=== PATIENT | male | born 1945 | race African-American/Black ===

== ENCOUNTER 2016-06-06 08:03 | Day surgery (SDC) | payer MEDICARE, BC ==
--- NOTE | ~2016-06-06 | EGD ---
EGD REPORT [facility] [address] [place]. [id number] NAME: TYRONE JANSEN : [birth year] STATUS : REG [facility]#: [id number] AGE: 70 ADM/REG DATE : 06/06/16 MR#: [id number] REPORT SERV DATE: 06/06/16 DICTATED BY: GINGER NOWAK DATE: 06/06/16 REPORT STATUS : Draft TRANSCRIBED BY: [employer] DATE: 06/06/16 [facility] Patient Name: Tyrone Jansen Date of : 1945 Attending MD: JAMAR NOWAK MD Procedure Date No Time: 06/06/2016 Procedure: Colonoscopy Indications: High risk colon cancer surveillance: Personal history of colonic polyps, Last colonoscopy: January 2011 Referring MD: AMANDA MURRAY Medicines: See the Anesthesia note for documentation of the administered medications Complications: No immediate complications. Estimated blood loss: None. Procedure: Pre-Anesthesia Assessment: - ASA Grade Assessment: III - A patient with severe systemic disease. - Prior to the procedure, a History and Physical was performed, and patient medications and allergies were reviewed. The patient's tolerance of previous anesthesia was also reviewed. The risks and benefits of the procedure and the sedation options and risks were discussed with the patient. All questions were answered, and informed consent was obtained. Prior Anticoagulants: The patient has taken Coumadin (warfarin), last dose was 5 days prior to procedure. After reviewing the risks and benefits, the patient was deemed in satisfactory condition to undergo the procedure. After I obtained informed consent, the scope was passed under direct vision. Throughout the procedure, the patient's blood pressure, pulse, and oxygen saturations were monitored continuously. The PCF [id number] was introduced through the anus and advanced to the terminal ileum. The ileocecal valve, appendiceal orifice, terminal ileum and rectum were photographed. The entire colon was examined. The colonoscopy was performed without difficulty. The patient tolerated the procedure well. The quality of the bowel preparation was adequate. Findings: The perianal and digital rectal examinations were normal. The terminal ileum appeared normal. A sessile polyp was found in the mid ascending colon. The polyp was small in size. The polyp was removed with a cold snare. Resection and retrieval were complete. A sessile polyp was found in the proximal descending colon. The polyp EGD REPORT [address] [address] NAME: TYRONE JANSEN : [birth year] STATUS : REG [facility]#: [id number] AGE: 70 ADM/REG DATE : 06/06/16 MR#: [id number] REPORT SERV DATE: 06/06/16 DICTATED BY: GINGER NOWAK DATE: 06/06/16 REPORT STATUS : Draft TRANSCRIBED BY: [employer] DATE: 06/06/16 was small in size. The polyp was removed with a cold snare. Resection and retrieval were complete. Multiple small and large-mouthed diverticula were found in the entire colon. Non-bleeding internal hemorrhoids were found during retroflexion and were Grade I (internal hemorrhoids that do not prolapse). No other significant abnormalities were identified in a careful examination of the remainder of the colon. Impression: - The examined portion of the ileum was normal. - One small polyp in the mid ascending colon. Resected and retrieved. - One small polyp in the proximal descending colon. Resected and retrieved. - Diverticulosis in the entire examined colon. - Non-bleeding internal hemorrhoids. Recommendation: - Patient has a contact number available for emergencies. The signs and symptoms of potential delayed complications were discussed with the patient. Return to normal activities tomorrow. Written discharge instructions were provided to the patient. - High fiber diet indefinitely. - Discharge patient to home. - Continue present medications. - Await pathology results. - Repeat colonoscopy in 5-10 years for surveillance based on pathology results. - Restart your coumadin at your regular dose today. Procedure Code(s): --- Professional --- 96725, Colonoscopy, flexible, proximal to splenic flexure; with removal of tumor(s), polyp(s), or other lesion(s) by snare technique Diagnosis Code(s): --- Professional --- K64.0, First degree hemorrhoids K57.30, Diverticulosis of large intestine without perforation or abscess without bleeding D12.4, Benign neoplasm of descending colon D12.2, Benign neoplasm of ascending colon Z86.010, Personal history of colonic polyps CPT copyright 2013 [employer]. All rights reserved. The codes documented in this report are preliminary and upon medical records coder review may EGD REPORT [facility] [address] [address] [address] NAME: TYRONE JANSEN : [birth year] STATUS : REG [facility] PAT#: [id number] AGE: 70 ADM/REG DATE : 06/06/16 MR#: [id number] REPORT SERV DATE: 06/06/16 DICTATED BY: GINGER NOWAK DATE: 06/06/16 REPORT STATUS : Draft TRANSCRIBED BY: [employer] DATE: 06/06/16 be revised to meet current compliance requirements. JAMAR NOWAK MD 06/06/2016 10:28 AM This report has been signed electronically. Number of Addenda: 0 Note Initiated On: 06/06/2016 10:04 AM Scope Withdrawal Time 0 hours 8 minutes 29 seconds [address] [id number]
[~2016-06-06 08:03] MED LIST: C1 PO; FISH-EPA1000 MG PO; HYDROCHLOROT12.5 MG PO; LOP100 PO; LOTE40 PO; MOBIC7.5 PO; MULTIPLE VIT PO; NIASPAN500 PO; POT GLUCONAT550 M1 PO; POTASSIUM GLUCONATE PO; SPIRO25 PO
== END 2016-06-06 23:59 | disposition home or self-care (01) ==
LOC: DMU 08:03
PROVIDERS: Internal Medicine Gastroenterology
PROC: 0DBM8ZZ Excision of Descending Colon, Via Natural or Artificial Opening Endoscopic (ICD-10-PCS; 2016-06-06)
PROC: 0DBK8ZZ Excision of Ascending Colon, Via Natural or Artificial Opening Endoscopic (ICD-10-PCS; principal; 2016-06-06 09:30)
DX: Z12.11 Encounter for screening for malignant neoplasm of colon (principal); I10 Essential (primary) hypertension; D12.4 Benign neoplasm of descending colon; D12.2 Benign neoplasm of ascending colon; I48.91 Unspecified atrial fibrillation; K64.0 First degree hemorrhoids; K57.30 Diverticulosis of large intestine without perforation or abscess without bleeding; Z86.010 Personal history of colon polyps; Z79.899 Other long term (current) drug therapy; Z79.01 Long term (current) use of anticoagulants; Z79.2 Long term (current) use of antibiotics
CPT/HCPCS: 88305